=== PATIENT | female | born 1985 | race African-American/Black ===

== ENCOUNTER 2022-10-07 00:31 | Emergency (ER) | payer SELFPAY ==
[~2022-10-07] VITALS: Ht 172.7 cm; Wt 87.0 kg
[2022-10-07 00:39] VITALS: TEMP 98.1; O2SAT 98
[2022-10-07] MEDS ORDERED: SODIUM CHLORIDE 0.9% 1,000 ML IV ONE (00:45)
[2022-10-07] MEDS ORDERED: FENTANYL CITRATE/PF 50MCG/ML 2ML VIAL IV ONE (00:45)
[2022-10-07] MEDS ORDERED: TETANUS, DIPHTHERIA, PERTUSSIS VAC/PF 0.5ML (>10YR OLD) IM ONE (00:45)
[2022-10-07 00:52] LABS: BASOPHILS % 0.5 % (0.0-2.0); EOSINOPHILS % 2.7 % (0.0-5.0); HEMATOCRIT. 32.5 % (36.0-48.0); HEMOGLOBIN. 10.8 g/dL (12.0-16.0); LYMPHOCYTES % 26.9 % (20.0-50.0); MEAN CORPUSCULAR HEMOGLOBIN 33.1 pg (28.0-32.0); MEAN CORPUSCULAR HGB CONC 33.3 g/dL (31.0-37.0); MEAN CORPUSCULAR VOLUME 99.5 fL (81.0-99.0); MEAN PLATELET VOLUME 8.1 fl (7.4-10.4); MONOCYTES % 6.5 % (2.0-8.0); NEUTROPHILS % 63.4 % (40.0-76.0); PLATELET 186 x1000/uL (130-400); RED BLOOD CELL COUNT 3.26 mill/uL (4.2-5.4); RED CELL DISTRIBUTION WIDTH 12.9 % (11.6-14.6); WHITE BLOOD COUNT 10.2 x1000/uL (4.5-11.0)
[2022-10-07 00:57] VITALS: BP 159/79; PULSE 92; RESP 16
[2022-10-07] MEDS ORDERED: CEFAZOLIN 1000MG PREMIX 50 ML IV ONE (01:00)
[2022-10-07 01:01] LABS: CHLORIDE 116 mEq/L (98-107); INDEX HEMOLYSI 1 (1-3); INDEX ICTERIC 1 (1-4); INDEX LIPEMIC 1 (1-3); POTASSIUM 2.9 mEq/L (3.5-5.1); SODIUM 143 mEq/L (136-145)
[2022-10-07 01:07] LABS: ALANINE AMINOTRANSFERASE 14 IU/L (13-61); ALBUMIN 2.6 g/dL (3.4-5.0); ASPARTATE AMINOTRANSFERASE 9 IU/L (15-37); BILIRUBIN TOTAL 0.3 mg/dL (0.1-1.0); CALCIUM 6.8 mg/dL (8.5-10.1); CARBON DIOXIDE 16 mEq/L (21-32); CREATININE 0.7 mg/dL (0.6-1.3); ETHANOL BLOOD < 10 mg/dL (-10); GLUCOSE 111 mg/dL (70-105); PROTEIN TOTAL 5.3 g/dL (6.0-8.3); UREA NITROGEN BLOOD 10 mg/dL (7-21)
[2022-10-07 01:20] LABS: HCG SCREEN POSITIVE
[2022-10-07 01:22] LABS: LACTIC ACID 2.9 mmol/L (0.4-2.0)
== END 2022-10-07 01:24 | disposition short-term general hospital (02) ==
LOC: ER 00:31 → EDBD 00:31 → ER 01:24
DX: S01.01XA Laceration without foreign body of scalp, initial encounter (principal); S61.411A Laceration without foreign body of right hand, initial encounter; F14.90 Cocaine use, unspecified, uncomplicated; X95.8XXA Assault by other firearm discharge, initial encounter; Y93.89 Activity, other specified; Y92.89 Other specified places as the place of occurrence of the external cause; Y99.8 Other external cause status
CPT/HCPCS: 80053; 80320; 84703; 83605; 83690; 85025; 85610; 36415; 90715; 90471; 96365; 96375; 99285; J3010; J0690; J7030; G0480